=== PATIENT | female | born 1950 | race Caucasian/White ===

== ENCOUNTER 2016-11-06 15:16 | Emergency (ER) | payer MEDICARE, OTHER ==
[~2016-11-06] VITALS: Ht 167.6 cm; Wt 90.9 kg
[2016-11-06 15:27] VITALS: BP 117/76
[2016-11-06] MEDS ORDERED: HYDROcodone/APAP 5/325 TABLET PO ONE (16:00)
[2016-11-06] MEDS ORDERED: METHOCARBAMOL 500 MG TABLET PO ONE (16:00)
[2016-11-06] MEDS ORDERED: HYDROcodone/APAP 5/325 TABLET ONE (16:12)
== END 2016-11-06 16:27 | disposition home or self-care (01) ==
LOC: ED 16:21
DX: S33.5XXA Sprain of ligaments of lumbar spine, initial encounter (principal); E78.00 Pure hypercholesterolemia, unspecified; G89.29 Other chronic pain; M54.5 Low back pain; Z76.0 Encounter for issue of repeat prescription; X58.XXXA Exposure to other specified factors, initial encounter; Y93.89 Activity, other specified; Y99.8 Other external cause status; Y92.89 Other specified places as the place of occurrence of the external cause
CPT/HCPCS: 99283

== ENCOUNTER 2018-02-15 13:57 | Emergency (ER) | payer OTHER ==
[~2018-02-15] VITALS: Ht 167.6 cm; Wt 100.0 kg
[2018-02-15 14:38] LABS: BASOPHILS # (AUTO) 0.02 x10^3/uL (0-0.1); BASOPHILS % (AUTO) 0 % (0-1); EOSINOPHILS % (AUTO) 0 % (1-7); LYMPHOCYTES % (AUTO) 14 % (22-44); MD NO; MEAN CORPUSCULAR HEMOGLOBIN 31.5 pg (27.0-34.8); MEAN CORPUSCULAR HGB CONC 33.3 g/dL (32.4-35.8); MEAN CORPUSCULAR VOLUME 94.6 fL (80-100); MEAN PLATELET VOLUME 8.3 fL (7.4-10.4); MONOCYTES # (AUTO) 0.69 x10^3/uL (0.2-0.8); MONOCYTES % (AUTO) 4 % (2-9); NEUTROPHILS # (AUTO) 14.66 x10^3/uL (1.8-6.8); NEUTROPHILS % (AUTO) 82 % (42-75); PLATELET COUNT 353 x10^3/uL (130-400); RED BLOOD COUNT 4.87 x10^6/uL (3.82-5.3); RED CELL DISTRIBUTION WIDTH 14.6 % (9.6-15.2)
[2018-02-15 14:47] LABS: ALBUMIN 4.6 g/dL (3.4-5.0); ANION GAP 15 mmol/L (5-15); CALCIUM 9.5 mg/dL (8.5-10.1); CHLORIDE 107 mmol/L (98-107); CREATININE 1.21 mg/dL (0.55-1.02)
[2018-02-15 14:48] LABS: ACETAMINOPHEN < 2 mcg/mL (10-30); SALICYLATE LEVEL < 1.7 mg/dL (2.8-20.0)
[2018-02-15 15:00] LABS: MICROSCOPIC INDICATED
[2018-02-15 15:02] LABS: AMPHETAMINE SCREEN, URINE Negative (Negative); BARBITURATE SCREEN, URINE Negative (Negative); BENZODIAZEPINE SCREEN, URINE Negative (Negative); CANNABINOID SCREEN, URINE Negative (Negative); COCAINE SCREEN, URINE Negative (Negative); METHADONE SCREEN, URINE Negative (Negative); OPIATE SCREEN, URINE Positive (Negative)
[2018-02-15 15:18] LABS: CULTURE INDICATED? NO
[2018-02-15] MEDS ORDERED: ZIPRASIDONE 20 MG INJ IM ONE ×2 (15:30→16:10)
[2018-02-15 15:37] LABS: ALBUMIN 4.6 g/dL (3.4-5.0); BILIRUBIN, DIRECT 0.2 mg/dL (0.1-0.2)
[2018-02-15 15:43] LABS: BILIRUBIN,INDIRECT 1.2 mg/dL (0.0-2.0); BILIRUBIN,TOTAL 1.4 mg/dL (0.2-1.0); TOTAL PROTEIN 8.9 g/dL (6.4-8.2)
[2018-02-15] MEDS ORDERED: LITHIUM (19:41)
[2018-02-15] MEDS ORDERED: HYDR-3245 PO (19:41)
[2018-02-15] MEDS ORDERED: SEROQUEL (19:43)
[2018-02-15] MEDS ORDERED: QUETIAPINE 100MG TABLET ONE (21:55)
[2018-02-15] MEDS: QUETIAPINE 100MG TABLET PO SCH (21:56)
[2018-02-15] MEDS ORDERED: LORazepam 1MG TABLET ONE (21:58)
[2018-02-15] MEDS ORDERED: ONDANSETRON 4 MG TABLET PO PRN (22:00)
[2018-02-15] MEDS ORDERED: ACETAMINOPHEN 325 MG TABLET PO PRN (22:00)
[2018-02-15] MEDS ORDERED: ZIPRASIDONE 20 MG INJ IM PRN (22:00)
[2018-02-15] MEDS: SODIUM CHLORIDE 0.9% 1,000 ML IV SCH (22:50)
[2018-02-16] MEDS ORDERED: QUETIAPINE 100MG TABLET ONE (06:31)
[2018-02-16] MEDS: QUETIAPINE 100MG TABLET PO SCH (06:34)
[2018-02-16] MEDS ORDERED: LORazepam 1MG TABLET ONE ×2 (07:06→13:23)
[2018-02-16 07:24] VITALS: BP 116/73
[2018-02-16] MEDS: SODIUM CHLORIDE 0.9% 1,000 ML IV SCH (07:31)
[2018-02-16 07:44] LABS: BASOPHILS # (AUTO) 0.06 x10^3/uL (0-0.1); BASOPHILS % (AUTO) 1 % (0-1); EOSINOPHILS # (AUTO) 0.12 x10^3/uL (0-0.4); EOSINOPHILS % (AUTO) 1 % (1-7); LYMPHOCYTES # (AUTO) 3.22 x10^3/uL (1-3.4); LYMPHOCYTES % (AUTO) 26 % (22-44); MD NO; MEAN CORPUSCULAR HEMOGLOBIN 31.8 pg (27.0-34.8); MEAN CORPUSCULAR HGB CONC 33.8 g/dL (32.4-35.8); MEAN PLATELET VOLUME 7.9 fL (7.4-10.4); MONOCYTES # (AUTO) 0.94 x10^3/uL (0.2-0.8); MONOCYTES % (AUTO) 8 % (2-9); NEUTROPHILS # (AUTO) 8.02 x10^3/uL (1.8-6.8); NEUTROPHILS % (AUTO) 65 % (42-75); PLATELET COUNT 268 x10^3/uL (130-400); RED BLOOD COUNT 4.39 x10^6/uL (3.82-5.3); RED CELL DISTRIBUTION WIDTH 14.6 % (9.6-15.2)
[2018-02-16 07:55] LABS: ALANINE AMINOTRANSFERASE 21 U/L (12-78); ALBUMIN 4.1 g/dL (3.4-5.0); ANION GAP 12 mmol/L (5-15); CHLORIDE 106 mmol/L (98-107); CREATININE 0.88 mg/dL (0.55-1.02)
[2018-02-16 07:58] LABS: ALKALINE PHOSPHATASE 121 U/L (45-117); BILIRUBIN,TOTAL 1.9 mg/dL (0.2-1.0); TOTAL PROTEIN 7.6 g/dL (6.4-8.2)
[2018-02-16] MEDS ORDERED: POTASSIUM CHLORIDE 20 MEQ TAB.ER.PRT ONE (08:17)
[2018-02-16] MEDS ORDERED: POTASSIUM CHLORIDE 20 MEQ TAB.ER.PRT PO ONE (08:30)
[2018-02-16] MEDS ORDERED: ACETAMINOPHEN 325 MG TABLET ONE (13:23)
== END 2018-02-16 15:03 ==
LOC: ED 16:59 → SUATTDRO 21:41 → UNDOADMOB 21:43 → EDIP 21:43 → ED 02-16 15:03
PROVIDERS: ATTEND Internal Medicine
DX: F22 Delusional disorders (principal); F20.9 Schizophrenia, unspecified; R17 Unspecified jaundice; D72.829 Elevated white blood cell count, unspecified; F31.9 Bipolar disorder, unspecified
CPT/HCPCS: 36415; 70450; 71045; 76700; 80048; 80053; 80076; 80307; 80329; 81001; 82040; 82140; 82550; 85025; 96372; 99285; J3486; G0480

== ENCOUNTER 2019-03-28 10:30 | Emergency (ER) | payer OTHER ==
[~2019-03-28] VITALS: Ht 167.6 cm; Wt 95.5 kg
[~2019-03-28 10:30] MED LIST: HYDR-3245 PO; LITHIUM; SEROQUEL
--- NOTE | 2019-03-28 11:15 | NUR ---
called pt no answer
--- NOTE | 2019-03-28 12:35 | NUR ---
PT. WAS GIVEN DISCHARGE INSTRUCTIONS AND SCRIPTS WITH UNDERSTANDING VERBALIZED ALONG WITH WILLINGNESS TO COMPLY. PT. WAS AMBULATORY TO THE DISCHARGE DESK.
[2019-03-28 12:36] VITALS: BP 133/89
== END 2019-03-28 12:38 | disposition home or self-care (01) ==
LOC: ED 12:20
DX: H60.12 Cellulitis of left external ear (principal); L03.313 Cellulitis of chest wall; G62.9 Polyneuropathy, unspecified; E78.00 Pure hypercholesterolemia, unspecified; R07.89 Other chest pain
CPT/HCPCS: 99281

== ENCOUNTER 2020-01-23 21:21 | Emergency (ER) | payer MEDICARE, MEDICAID ==
[~2020-01-23] VITALS: Ht 167.6 cm; Wt 85.0 kg
[~2020-01-23 21:21] MED LIST changes: +ARIP20TA5 PO; +ATOR40TA PO; +ATOR40TA78 PO; +CARB200T4 PO; +DIVA500T2 PO; +GABA300C PO; +HALO1TAB PO; +HYDR50CA PO; +HYDR50CA2 PO; +LEVE100020 PO; +MONT10TA6 PO; +QUET200T PO; +QUET400T4 PO; +ZOLP5TAB PO
[2020-01-23 21:22] VITALS: BP 117/71
== END 2020-01-24 00:28 | disposition home or self-care (01) ==
LOC: ED 21:45
DX: S20.211A Contusion of right front wall of thorax, initial encounter (principal); W01.0XXA Fall on same level from slipping, tripping and stumbling without subsequent striking against object, initial encounter; Y93.89 Activity, other specified; Y92.410 Unspecified street and highway as the place of occurrence of the external cause; Y99.8 Other external cause status
CPT/HCPCS: 99283